=== PATIENT | male | born 1960 | race Caucasian/White ===

== ENCOUNTER 2016-10-14 09:23 | Inpatient (IN) | payer OTHER ==
[2016-10-14 10:15] VITALS: BMI 22.2
--- NOTE | 2016-10-14 12:13 | HP ---
CIWA Score - CIWA Score Nausea/Vomitin Muscle Tremors: 3 Anxiety: 3 Agitation: 3 Paroxysmal Sweats: 2 Orientation: 0-Oriented Tacttile Disturbances: 2-Mild Itch/Numbness/Burn Auditory Disturbances: 2-Mild Harshness/Frighten Visual Disturbances: 2-Mild Sensitivity Headache: 2-Mild CIWA-Ar Total Score: 22 Admission ROS BHS - HPI Chief Complaint: I AM HERE NEED HELP TO STOP ALCOHOL Allergies/Adverse Reactions: Allergies Allergy/AdvReac Type Severity Reaction Status Date / Time No Known Allergies Allergy Verified 10/14/16 10:57 History of Present Illness: THIS 56 YEARS OLD WITH ALCOHOL DEPENDENCE,WITHDRAWAL SYMPTOM,LAST DETOX 2014 [place] HTN SEIZURE LAST 02/26/14 DEPRESSION FRACTURE LEFT RIBS,FX LEFT ULNA AND ,LEFT HAND 6 DAYS AGO LONGEST PERIOD SOBRIETY 3O DAYS Exam Limitations: No Limitations - Ebola screening Have you traveled outside of the country in the last 21 days: No Have you had contact with anyone from an Ebola affected area: No Have you been sick,other than usual withdrawal symptoms: No - Review of Systems Constitutional: Loss of Appetite, Malaise, Night Sweats, Changes in sleep EENT: reports: Tearing, Nose Congestion Respiratory: reports: No Symptoms reported, Other (ASTHMA) Cardiac: reports: Palpitations GI: reports: Nausea, Poor Appetite, Vomiting, Abdominal cramping : reports: No Symptoms Reported Musculoskeletal: reports: Muscle Pain Integumentary: reports: Dryness Neuro: reports: Headache, Tremors Endocrine: reports: No Symptoms Reported Hematology: reports: No Symptoms Reported Psychiatric: reports: Depressed Patient History - Patient Medical History Hx Anemia: No Hx Asthma: Yes (ON ALBUTEROL INHALER AND SYMBICORT) Hx Chronic Obstructive Pulmonary Disease (COPD): No Hx Cancer: No Hx Cardiac Disorders: No Hx Congestive Heart Failure: No Hx Hypertension: Yes (ON MED) Hx Seizures: Yes (alcohol relatd-last episode was in 02/2014) Hx Diabetes: No Hx Gastrointestinal Disorders: No Hx Liver Disease: No Hx Genitourinary Disorders: No Hx Sexually Transmitted Disorders: No Hx Renal Disease (ESRD): No Hx Thyroid Disease: No Hx Human Immunodeficiency Virus (HIV): No (LAST 2016 NEGATIVE) Hx Hepatitis C: No Hx Depression: Yes (ON MED) Hx Suicide Attempt: No Hx Bipolar Disorder: No Hx Schizophrenia: No Other Medical History: NOS UICIDAL,NO HOMICIDAL - Patient Surgical History Past Surgical History: Yes Hx Neurologic Surgery: No Hx Cataract Extraction: No Hx Cardiac Surgery: No Hx Lung Surgery: No Hx Breast Surgery: No Hx Breast Biopsy: No Hx Abdominal Surgery: No Hx Appendectomy: No Hx Cholecystectomy: No Hx Genitourinary Surgery: No Hx Section: No Hx Orthopedic Surgery: Yes (LEFT upper arm HUMERUS 2011) Other Surgical History: tonsilectomy AT AGE 1 MONTHS? - PPD History Previous Implant?: Yes Documented Results: Negative w/o proof Implanted On Prior R Admission?: No PPD to be Administered?: Yes - Smoking Cessation Smoking history: Current every day smoker Have you smoked in the past 12 months: Yes Aproximately how many cigarettes per day: 15 Hx Chewing Tobacco Use: No Initiated information on smoking cessation: Yes 'Breaking Loose' booklet given: 10/14/16 - Substance & Tx. History Hx Alcohol Use: Yes Hx Substance Use: No Substance Use Type: Alcohol Hx Substance Use Treatment: Yes (2014 [place]) - Substances Abused Alcohol-vodka Route: Oral Frequency: Daily Amount used: 1 pt. Age of first use: 14 Date of Last Use: 10/12/16 Family Disease History - Family Disease History Family History: Denies Admission Physical Exam S - Vital Signs Vital Signs: Vital Signs - 24 hr 10/14/16 10:12 Temperature 98.7 F Pulse Rate 103 H Respiratory 20 Rate Blood Pressure 121/91 - Physical General Appearance: Yes: Moderate Distress, Tremorous, Irritable, Sweating, Anxious HEENTM: Yes: Normal ENT Inspection, AMANDA, Pharynx Normal Respiratory: Yes: Lungs Clear, Normal Breath Sounds, No Respiratory Distress Neck: Yes: Within Normal Limits Breast: Yes: Within Normal Limits Cardiology: Yes: Within Normal Limits, Regular Rhythm, Regular Rate, S1, S2 Abdominal: Yes: Normal Bowel Sounds, Non Tender, Flat, Soft, Organomegaly Genitourinary: Yes: Within Normal Limits Back: Yes: Muscle Spasm Musculoskeletal: Yes: Back pain, Muscle Pain Extremities: Yes: Normal Range of Motion, Tremors, Other 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, Fully Oriented, Alert, Motor Strength 5/5 Integumentary: Yes: Dry Lymphatic: Yes: Within Normal Limits - Addiitonal Findings: SHORT ARM CAST LEFT - Diagnostic (1) Alcohol dependence with uncomplicated withdrawal Current Visit: Yes Status: Acute (2) Essential hypertension Current Visit: Yes Status: Acute (3) Seizure Current Visit: Yes Status: Acute (4) Depression Current Visit: Yes Status: Acute (5) Asthma Current Visit: Yes Status: Acute (6) Fracture of rib of left side Current Visit: Yes Status: Acute (7) Fracture of left ulna Current Visit: Yes Status: Acute (8) Fracture of left hand Current Visit: Yes Status: Acute Cleared for Admission [facility] - Detox or Rehab [facility] Level of Care: Medically Managed Detox Regimen/Protocol: Librium [facility] Breath Alcohol Content Breath Alcohol Content: 0.113 Urine Drug Screen - Results Drug Screen Negative: No Urine Drug Screen Results: OPI-Opiates, MET-Methamphetamine, BZO-Benzodiazepines
[2016-10-14] MEDS ORDERED: P-EPHED 60MG/TRIPROLIDI 2.5MG TABLET PO PRN (12:48)
[2016-10-14] MEDS ORDERED: hydrOXYzine PAMOATE 50 MG CAPSULE (FP) PO PRN (12:48)
[2016-10-14] MEDS ORDERED: MAGNESIUM CITRATE 300 ML BOTTLE PO PRN (12:48)
[2016-10-14] MEDS ORDERED: NICOTINE POLACRILEX 2 MG GUM BUC PRN (12:48)
[2016-10-14] MEDS ORDERED: guaiFENesin/D-METHORPHAN HB 10 ML UNIT-DOSE CUPS PO PRN (12:48)
[2016-10-14] MEDS ORDERED: MAGNESIUM HYDROX 2400MG/30ML ORAL SUSPENSION 30 ML CUP PO PRN (12:48)
[2016-10-14] MEDS ORDERED: MENTHOL/PHENOL 1 EACH UD MM PRN (12:48)
[2016-10-14] MEDS ORDERED: MAG HYDROX/AL HYDROX/SIMETH 30 ML UNIT-DOSE CUP PO PRN (12:48)
[2016-10-14] MEDS ORDERED: LOPERAMIDE HCL 2 MG CAPSULE PO PRN (12:48)
[2016-10-14] MEDS ORDERED: PATIENT'S OWN MEDICATION (NON-FORMULARY) (Naproxen Sodium [Aleve] 220 MG) PO PRN (12:52)
[2016-10-14] MEDS ORDERED: chlordiazePOXIDE HCL 25 MG CAPSULE PO ONE (12:55)
[2016-10-14] MEDS: NICOTINE 21 MG/24 HOURS TOPICAL PATCH TD SCH (14:00)
[2016-10-14] MEDS ORDERED: ALBUTEROL SO4 6.7 GM HFA INHALER IH PRN (14:12)
[2016-10-14] MEDS: ACETAMINOPHEN 325 MG TABLET (FP) PO PRN ×2 (15:29→19:48)
--- NOTE | 2016-10-14 15:56 | CONSULT ---
[facility] Psychiatric Consult - Data Date of interview: 10/14/16 Admission source: [facility] Identifying data: First admission to [facility] for this 56 y/o male seeking detox treatment for alcohol dependence.Patient is ,a father of two,domiciled (lives with his parents),currently unemployed and supported on [facility] benefits. Substance Abuse History: - Smoking Cessation. Smoking history: Current every day smoker. Have you smoked in the past 12 months: Yes. Aproximately how many cigarettes per day: 15. Hx Chewing Tobacco Use: No. Initiated information on smoking cessation: Yes. 'Breaking Loose' booklet given: 10/14/16. - Substance & Tx. History. Hx Alcohol Use: Yes. Hx Substance Use: No. Substance Use Type : Alcohol. Hx Substance Use Treatment: Yes (2014 [place]). - Substances Abused. Alcohol-vodka. Route: Oral. Frequency: Daily. Amount used: 1 pt. Age of first use: 14. Date of Last Use: 10/12/16. Confirmed by patient. Medical History: Bronchial asthma,hypetension,seizure disorder (on valproate) and fracture of ribs,left ulna (cast in place) due to an accidental fall at home last week. Psychiatric History: No reported history of psychiatric hospitalizations.Diagnosed with MDD.Prescribed effexor 37.5 mg/day.No regular OPD care.Mr Fitzgerald reports that he depends on his primary care doctor for scripts.Last took the medication a week ago.Patient denies history of suicide attempts. Physical/Sexual Abuse/Trauma History: Patient denies. Additional Comment: Urine Drug Screen Results: OPI-Opiates, MET-Methamphetamine , BZO-Benzodiazepines.Noted. Mental Status Exam - Mental Status Exam Alert and Oriented to: Time, Place Cognitive Function: Good Patient Appearance: Well Groomed (left forearm/hand in a cast) Mood: Withdrawn, Anxious, Apprehensive, Hopeful Affect: Mood Congruent Patient Behavior: Fatigued, Appropriate, Cooperative Speech Pattern: Clear, Appropriate Voice Loudness: Normal Thought Process: Goal Oriented Thought Disorder: Not Present Hallucinations: Denies Suicidal Ideation: Denies Homicidal Ideation: Denies Insight/Judgement: Poor Sleep: Fair Appetite: Good Muscle strength/Tone: Normal Gait/Station: Normal Psychiatric Findings - Problem List ([place] 1, 2,3) (1) Alcohol dependence with uncomplicated withdrawal Current Visit: Yes Status: Acute (2) Nicotine dependence Current Visit: Yes Status: Acute (3) Alcohol-induced mood disorder Current Visit: Yes Status: Acute (4) Mood disorder Current Visit: Yes Status: Chronic (5) Asthma Current Visit: Yes Status: Chronic (6) Essential hypertension Current Visit: Yes Status: Chronic (7) Fracture of left hand Current Visit: Yes Status: Acute (8) Fracture of left ulna Current Visit: Yes Status: Acute (9) Fracture of rib of left side Current Visit: Yes Status: Acute (10) Seizure Current Visit: Yes Status: Chronic - Initial Treatment Plan Initial Treatment Plan: Psychoeducation.Detoxification in progress.Medication : effexor 37.5 mg po daily (confirmed by pharmacy claims of 10/06/16 @ [id number]) .Side effects/benefits discussed with patient.Made aware of risk of hypertension.Patient consents (verbally) to continue treatment with effexor.Observation.No script needed at discharge (already available supply of effexor).
[2016-10-14 17:06] LABS: URINE APPEARANCE TURBID; URINE BLOOD NEGATIVE (NEGATIVE); URINE COLOR YELLOW; URINE GLUCOSE (UA) NEGATIVE (NEGATIVE); URINE KETONE TRACE (NEGATIVE); URINE LEUK ESTERASE NEGATIVE (NEGATIVE); URINE NITRITE NEGATIVE (NEGATIVE); URINE UROBILINOGEN 4.0 E.U/dl E.U./dl (0.2-1.0)
[2016-10-14 17:07] LABS: URINE PROTEIN 2+ (NEGATIVE)
[2016-10-14 17:19] LABS: URINE MUCUS MANY; URINE RBC 3 /hpf (0-3)
[2016-10-14] MEDS: chlordiazePOXIDE HCL 25 MG CAPSULE PO SCH ×2 (17:55→22:28)
[2016-10-14] MEDS: IBUPROFEN 400 MG TABLET (FP) PO PRN (18:35)
[2016-10-14] MEDS: chlordiazePOXIDE HCL 25 MG CAPSULE PO PRN (19:48)
[2016-10-14] MEDS: DIVALPROEX SODIUM 250 MG TABLET E.C. (FP) PO SCH (22:28)
[2016-10-14] MEDS: THIAMINE HCL 100 MG TABLET (FP) PO SCH (22:28)
[2016-10-14] MEDS: BUDESONIDE/FORMETEROL FUMARATE 80/4.5 mcg INHALER IH SCH (22:55)
[2016-10-14] MEDS: NAPROXEN 250 MG TABLET (FP) PO SCH (23:36)
[2016-10-15] MEDS: IBUPROFEN 400 MG TABLET (FP) PO PRN (00:54)
[2016-10-15] MEDS: chlordiazePOXIDE HCL 25 MG CAPSULE PO PRN (00:54)
[2016-10-15] MEDS: diphenhydrAMINE HCL 50 MG CAPSULE PO PRN (00:54)
[2016-10-15] MEDS: chlordiazePOXIDE HCL 25 MG CAPSULE PO SCH (05:46)
[2016-10-15] MEDS: ACETAMINOPHEN 325 MG TABLET (FP) PO PRN (05:56)
[2016-10-15] MEDS: DIVALPROEX SODIUM 250 MG TABLET E.C. (FP) PO SCH ×2 (07:58→22:29)
[2016-10-15] MEDS ORDERED: diazePAM 5 MG TABLET PO ONE (08:44)
--- NOTE | 2016-10-15 08:52 | PN ---
S CIWA - CIWA Score Nausea/Vomitin Muscle Tremors: 3 Anxiety: 3 Agitation: 2 Paroxysmal Sweats: 1-Minimal Palms Moist Orientation: 0-Oriented Tacttile Disturbances: 1-Very Mild Itch/Numbness Auditory Disturbances: 1-Very Mild Visual Disturbances: 1-Very Mild Sensitivity Headache: 2-Mild CIWA-Ar Total Score: 17 BHS Progress Note (SOAP) Subjective: ALERT,IRRITABLE,ANXIOUS,INTERRUPTED SLEEP,TREMOR,PAIN IN THE LEFT RIBS Objective: 10/15/16 08:49 Vital Signs Temperature 97.6 F 10/15/16 06:45 Pulse Rate 71 10/15/16 06:45 Respiratory Rate 18 10/15/16 06:45 Blood Pressure 155/89 10/15/16 06:45 O2 Sat by Pulse Oximetry (%) EKG SINUS TACHYCARDIA RATE 107 Laboratory Last Values Urine Color Yellow 10/14/16 13:00 Urine Appearance Turbid 10/14/16 13:00 Urine pH 5.0 (5.0-8.0) 10/14/16 13:00 Ur Specific [place] 1.038 (1.001-1.035) H 10/14/16 13:00 Urine Protein 2+ (NEGATIVE) H 10/14/16 13:00 Urine Glucose (UA) Negative (NEGATIVE) 10/14/16 13:00 Urine Ketones Trace (NEGATIVE) H 10/14/16 13:00 Urine Blood Negative (NEGATIVE) 10/14/16 13:00 Urine Nitrite Negative (NEGATIVE) 10/14/16 13:00 Urine Bilirubin 4.0 (NEGATIVE) 10/14/16 13:00 Urine Urobilinogen 4.0 e.u/dl E.U./dl (0.2-1.0) 10/14/16 13:00 Ur Leukocyte Esterase Negative (NEGATIVE) 10/14/16 13:00 Urine RBC 3 /hpf (0-3) 10/14/16 13:00 Urine WBC None /hpf (3-5) 10/14/16 13:00 Amorphous Urates Many /hpf (NONE SEEN) 10/14/16 13:00 Urine Mucus Many 10/14/16 13:00 LABS PENDING Assessment: 10/15/16 08:50 WITHDRAWAL SYMPTOM Plan: CONTINUE DETOX,PATIENT WOULD LIKE REGIMEN TO BE CHANGED TO VALIUM INSTEAD OF LIBRIUM
[2016-10-15] MEDS: BUDESONIDE/FORMETEROL FUMARATE 80/4.5 mcg INHALER IH SCH ×2 (10:31→22:32)
[2016-10-15] MEDS: PRENATAL VITAMINS W/ FOLIC ACID TABLET (FP) PO SCH (10:31)
[2016-10-15] MEDS: NAPROXEN 250 MG TABLET (FP) PO SCH ×2 (10:31→22:31)
[2016-10-15] MEDS: NICOTINE 21 MG/24 HOURS TOPICAL PATCH TD SCH (10:32)
[2016-10-15] MEDS: METOPROLOL SUCCINATE 100 MG TAB.SR.24H (FP) PO SCH (10:33)
[2016-10-15] MEDS: VENLAFAXINE HCL 37.5 MG TABLET PO SCH (10:34)
[2016-10-15 10:52] LABS: MCH 34.2 pg (25.7-33.7); MCHC 34.4 g/dl (32.0-35.9); MEAN CELL VOLUME 99.6 fl (80-96); MEAN PLT VOLUME 7.7 fl (7.5-11.1); PLATELET COUNT 160 K/MM3 (134-434); RDW 14.1 % (11.9-15.9)
[2016-10-15 10:56] LABS: ALBUMIN 3.4 g/dl (3.4-5.0); ANION GAP 6 (8-16); CALCIUM 8.4 mg/dL (8.5-10.1); CO2 32 mmol/L (21-32); GLUCOSE,RANDOM 84 mg/dL (74-106)
[2016-10-15 11:00] LABS: ALK PHOS 65 U/L (45-117); BILIRUBIN,TOTAL 0.5 mg/dL (0.2-1.0); COCKROFT - GAULT 114.38; CREATININE 0.7 mg/dL (0.7-1.3); SGOT/AST 16 U/L (15-37); SGPT/ALT 16 U/L (12-78); TOT PROT 6.5 g/dl (6.4-8.2)
[2016-10-15] MEDS ORDERED: cloNIDine HCL 0.1 MG TABLET PO ONE (12:14)
--- NOTE | 2016-10-15 12:33 | EKG ---
Test Reason : Blood Pressure : / mmHG Vent. Rate : 107 BPM Atrial Rate : 107 BPM P-R Int : 152 ms QRS Dur : 084 ms QT Int : 354 ms P-R-T Axes : 063 -02 075 degrees QTc Int : 472 ms SINUS TACHYCARDIA OTHERWISE NORMAL ECG NO PREVIOUS ECGS AVAILABLE Confirmed by STAR ROQUE MD ([id number]) on 10/15/2016 12:33:17 PM Referred By: Moe Downey Confirmed By:STAR ROQUE MD
[2016-10-15] MEDS: diazePAM 5 MG TABLET PO SCH ×2 (14:11→22:29)
[2016-10-15] MEDS ORDERED: chlordiazePOXIDE HCL 25 MG CAPSULE PO SCH (17:00)
[2016-10-15] MEDS: diazePAM 5 MG TABLET PO PRN (17:07)
[2016-10-15] MEDS: THIAMINE HCL 100 MG TABLET (FP) PO SCH (22:29)
[2016-10-16] MEDS: ACETAMINOPHEN 325 MG TABLET (FP) PO PRN ×2 (04:34→19:46)
[2016-10-16] MEDS: diazePAM 5 MG TABLET PO SCH ×3 (05:21→22:33)
[2016-10-16] MEDS: DIVALPROEX SODIUM 250 MG TABLET E.C. (FP) PO SCH ×2 (07:05→22:33)
--- NOTE | 2016-10-16 09:55 | PN ---
[facility] CIWA - CIWA Score Nausea/Vomitin Muscle Tremors: 3 Anxiety: 3 Agitation: 2 Paroxysmal Sweats: 1-Minimal Palms Moist Orientation: 0-Oriented Tacttile Disturbances: 1-Very Mild Itch/Numbness Auditory Disturbances: 1-Very Mild Visual Disturbances: 1-Very Mild Sensitivity Headache: 2-Mild CIWA-Ar Total Score: 17 S Progress Note (SOAP) Subjective: ALERT,IRRITABLE,ANXIOUS,INTERRUPTED SLEEP,TREMOR,PAIN IN LEFT RIBS Objective: 10/16/16 09:54 Vital Signs Temperature 96.0 F L 10/16/16 06:07 Pulse Rate 72 10/16/16 06:07 Respiratory Rate 18 10/16/16 06:07 Blood Pressure 144/95 10/16/16 06:07 O2 Sat by Pulse Oximetry (%) Laboratory Last Values WBC 7.0 K/mm3 (4.0-10.0) 10/15/16 06:00 RBC 3.93 M/mm3 (4.00-5.60) L 10/15/16 06:00 Hgb 13.4 GM/dL (11.7-16.9) 10/15/16 06:00 Hct 39.1 % (35.4-49) 10/15/16 06:00 MCV 99.6 fl (80-96) H 10/15/16 06:00 MCHC 34.4 g/dl (32.0-35.9) 10/15/16 06:00 RDW 14.1 % (11.9-15.9) 10/15/16 06:00 Plt Count 160 K/MM3 (134-434) 10/15/16 06:00 MPV 7.7 fl (7.5-11.1) 10/15/16 06:00 Sodium 145 mmol/L (136-145) 10/15/16 06:00 Potassium 3.7 mmol/L (3.5-5.1) 10/15/16 06:00 Chloride 107 mmol/L (98-107) 10/15/16 06:00 Carbon Dioxide 32 mmol/L (21-32) 10/15/16 06:00 Anion Gap 6 (8-16) L 10/15/16 06:00 BUN 14 mg/dL (7-18) 10/15/16 06:00 Creatinine 0.7 mg/dL (0.7-1.3) 10/15/16 06:00 Creat Clearance w eGFR > 60 (>60) 10/15/16 06:00 Random Glucose 84 mg/dL (74-106) 10/15/16 06:00 Calcium 8.4 mg/dL (8.5-10.1) L 10/15/16 06:00 Total Bilirubin 0.5 mg/dL (0.2-1.0) 10/15/16 06:00 AST 16 U/L (15-37) 10/15/16 06:00 ALT 16 U/L (12-78) 10/15/16 06:00 Alkaline Phosphatase 65 U/L (45-117) 10/15/16 06:00 Total Protein 6.5 g/dl (6.4-8.2) 10/15/16 06:00 Albumin 3.4 g/dl (3.4-5.0) 10/15/16 06:00 Urine Color Yellow 10/14/16 13:00 Urine Appearance Turbid 10/14/16 13:00 Urine pH 5.0 (5.0-8.0) 10/14/16 13:00 Ur Specific [place] 1.038 (1.001-1.035) H 10/14/16 13:00 Urine Protein 2+ (NEGATIVE) H 10/14/16 13:00 Urine Glucose (UA) Negative (NEGATIVE) 10/14/16 13:00 Urine Ketones Trace (NEGATIVE) H 10/14/16 13:00 Urine Blood Negative (NEGATIVE) 10/14/16 13:00 Urine Nitrite Negative (NEGATIVE) 10/14/16 13:00 Urine Bilirubin 4.0 (NEGATIVE) 10/14/16 13:00 Urine Urobilinogen 4.0 e.u/dl E.U./dl (0.2-1.0) 10/14/16 13:00 Ur Leukocyte Esterase Negative (NEGATIVE) 10/14/16 13:00 Urine RBC 3 /hpf (0-3) 10/14/16 13:00 Urine WBC None /hpf (3-5) 10/14/16 13:00 Amorphous Urates Many /hpf (NONE SEEN) 10/14/16 13:00 Urine Mucus Many 10/14/16 13:00 RPR Titer Nonreactive (NONREACTIVE) 10/15/16 06:00 Assessment: 10/16/16 09:55 WITHDRAWAL SYMPTOM Plan: CONTINUE DETOX
[2016-10-16] MEDS: PRENATAL VITAMINS W/ FOLIC ACID TABLET (FP) PO SCH (10:49)
[2016-10-16] MEDS: METOPROLOL SUCCINATE 100 MG TAB.SR.24H (FP) PO SCH (10:49)
[2016-10-16] MEDS: VENLAFAXINE HCL 37.5 MG TABLET PO SCH (10:50)
[2016-10-16] MEDS: BUDESONIDE/FORMETEROL FUMARATE 80/4.5 mcg INHALER IH SCH ×2 (10:50→22:34)
[2016-10-16] MEDS: NICOTINE 21 MG/24 HOURS TOPICAL PATCH TD SCH (10:51)
[2016-10-16] MEDS: NAPROXEN 500 MG TABLET (FP) PO SCH ×2 (10:51→22:33)
[2016-10-16] MEDS ORDERED: chlordiazePOXIDE 5 MG CAPSULE PO SCH (17:00)
[2016-10-16] MEDS: diazePAM 5 MG TABLET PO PRN (17:08)
[2016-10-16] MEDS: THIAMINE HCL 100 MG TABLET (FP) PO SCH (22:34)
[2016-10-16] MEDS: diphenhydrAMINE HCL 50 MG CAPSULE PO PRN (22:35)
[2016-10-17] MEDS: ACETAMINOPHEN 325 MG TABLET (FP) PO PRN (03:24)
--- NOTE | 2016-10-17 04:13 | PN ---
[facility] Progress Note Note: PATIENT COMPLAINT OF SEVERE PAIN IN THE LEFT FOREARM AND LEFT THUMB,NUMBNESS OF LEFT RING AND 5TH FINGER ,PAIN IN HE LEFT FOREARM, NAIL COLOR PINKISH MOVEMENTOF FINGERS WITH PAIN LEFT THUMB WITH ECCHYMOSIS SHORT ARM CAST LEFT IMPRESSION FX OF LEFT FOREARM LEFT HAND HISTORY S/P SHORT ARM CAST LEFT FOREARM ALCOHOL DEPENDENCE HYPERTENSION R/O COMPARTMENT SYNDROME TREATMENT TO ER EVALUATION AT [facility] SPOKE WITH DR AGUILAR TO BE TRASPORTED BY [facility]
[2016-10-17] MEDS ORDERED: diazePAM 5 MG TABLET PO SCH (10:00)
[2016-10-17 10:24] VITALS: BP 121/89; PULSE 76; TEMP 97.3
[2016-10-17] MEDS: BUDESONIDE/FORMETEROL FUMARATE 80/4.5 mcg INHALER IH SCH (11:17)
[2016-10-17] MEDS: VENLAFAXINE HCL 37.5 MG TABLET PO SCH (11:18)
[2016-10-17] MEDS: METOPROLOL SUCCINATE 100 MG TAB.SR.24H (FP) PO SCH (11:18)
[2016-10-17] MEDS: PRENATAL VITAMINS W/ FOLIC ACID TABLET (FP) PO SCH (11:18)
[2016-10-17] MEDS: NAPROXEN 500 MG TABLET (FP) PO SCH (11:20)
[2016-10-17] MEDS: NICOTINE 21 MG/24 HOURS TOPICAL PATCH TD SCH (11:21)
[2016-10-17] MEDS ORDERED: DIVALPROEX SODIUM 250 MG TABLET E.C. (FP) PO ONE (11:31)
--- NOTE | 2016-10-17 14:17 | DS ---
[facility] Detox Discharge Summary Admission Date: 10/14/16 Discharge Date: 10/17/16 - History Present History: Alcohol Dependence Additional Comments: ADVISED PATIENT TO FOLLOW-UP WITH [facility] FOR GENERAL MEDICAL ASSESSMENT. Pertinent Past History: Depression, Asthma, HTN, Seizures. - Physical Exam Results Vital Signs: Vital Signs Temperature 97.3 F L 10/17/16 10:23 Pulse Rate 76 10/17/16 10:23 Respiratory Rate 18 10/17/16 10:23 Blood Pressure 121/89 10/17/16 10:23 O2 Sat by Pulse Oximetry (%) Pertinent Admission Physical Exam Findings: WITHDRAWAL SYMPTOMS. Laboratory Last Values WBC 7.0 K/mm3 (4.0-10.0) 10/15/16 06:00 RBC 3.93 M/mm3 (4.00-5.60) L 10/15/16 06:00 Hgb 13.4 GM/dL (11.7-16.9) 10/15/16 06:00 Hct 39.1 % (35.4-49) 10/15/16 06:00 MCV 99.6 fl (80-96) H 10/15/16 06:00 MCHC 34.4 g/dl (32.0-35.9) 10/15/16 06:00 RDW 14.1 % (11.9-15.9) 10/15/16 06:00 Plt Count 160 K/MM3 (134-434) 10/15/16 06:00 MPV 7.7 fl (7.5-11.1) 10/15/16 06:00 Sodium 145 mmol/L (136-145) 10/15/16 06:00 Potassium 3.7 mmol/L (3.5-5.1) 10/15/16 06:00 Chloride 107 mmol/L (98-107) 10/15/16 06:00 Carbon Dioxide 32 mmol/L (21-32) 10/15/16 06:00 Anion Gap 6 (8-16) L 10/15/16 06:00 BUN 14 mg/dL (7-18) 10/15/16 06:00 Creatinine 0.7 mg/dL (0.7-1.3) 10/15/16 06:00 Creat Clearance w eGFR > 60 (>60) 10/15/16 06:00 Random Glucose 84 mg/dL (74-106) 10/15/16 06:00 Calcium 8.4 mg/dL (8.5-10.1) L 10/15/16 06:00 Total Bilirubin 0.5 mg/dL (0.2-1.0) 10/15/16 06:00 AST 16 U/L (15-37) 10/15/16 06:00 ALT 16 U/L (12-78) 10/15/16 06:00 Alkaline Phosphatase 65 U/L (45-117) 10/15/16 06:00 Total Protein 6.5 g/dl (6.4-8.2) 10/15/16 06:00 Albumin 3.4 g/dl (3.4-5.0) 10/15/16 06:00 Urine Color Yellow 10/14/16 13:00 Urine Appearance Turbid 10/14/16 13:00 Urine pH 5.0 (5.0-8.0) 10/14/16 13:00 Ur Specific [place] 1.038 (1.001-1.035) H 10/14/16 13:00 Urine Protein 2+ (NEGATIVE) H 10/14/16 13:00 Urine Glucose (UA) Negative (NEGATIVE) 10/14/16 13:00 Urine Ketones Trace (NEGATIVE) H 10/14/16 13:00 Urine Blood Negative (NEGATIVE) 10/14/16 13:00 Urine Nitrite Negative (NEGATIVE) 10/14/16 13:00 Urine Bilirubin 4.0 (NEGATIVE) 10/14/16 13:00 Urine Urobilinogen 4.0 e.u/dl E.U./dl (0.2-1.0) 10/14/16 13:00 Ur Leukocyte Esterase Negative (NEGATIVE) 10/14/16 13:00 Urine RBC 3 /hpf (0-3) 10/14/16 13:00 Urine WBC None /hpf (3-5) 10/14/16 13:00 Amorphous Urates Many /hpf (NONE SEEN) 10/14/16 13:00 Urine Mucus Many 10/14/16 13:00 RPR Titer Nonreactive (NONREACTIVE) 10/15/16 06:00 LABS NOTED. - Treatment Hospital Course: Detoxed Safely - Medication Discharge Medications: Ambulatory Orders Budesonide/Formeterol Fumarate [SYMBICORT 80/4.5mcg -] 1 inh IH BID 10/14/16 Divalproex Sodium [Depakote] 250 mg PO AM 10/14/16 Divalproex Sodium [Depakote] 750 mg PO HS 10/14/16 Metoprolol Succinate [Toprol Xl] 100 mg PO DAILY 10/14/16 Multivitamins [Multivit ([facility] Formulary)] 1 tab PO DAILY 10/14/16 Naproxen Sodium [Aleve] 220 mg PO BID PRN 10/14/16 Venlafaxine HCl ER [Effexor Xr -] 37.5 mg PO DAILY 10/14/16 Vitamin B Complex Vit C No.3 [Balanced B Complex-Vit C] 1 each PO DAILY Ibuprofen [Motrin -] 600 mg PO Q6H PRN #30 tablet 10/17/16 Oxycodone HCl/Acetaminophen [Percocet 5-325 mg Tablet] 1 tab PO Q6H PRN #24 tablet MDD 4 tablet 10/17/16 - Diagnosis (1) Alcohol dependence with uncomplicated withdrawal Status: Acute (2) Depression Status: Chronic Qualifiers: Depression Type: unspecified Qualified Code(s): F32.9 - Major depressive disorder, single episode, unspecified (3) Fracture of left hand Status: Acute Qualifiers: Encounter type: sequela Qualified Code(s): S62.92XS - Unspecified fracture of left wrist and hand, sequela (4) Fracture of left ulna Status: Acute Qualifiers: Encounter type: sequela Fracture type: closed Fracture morphology: unspecified fracture morphology (5) Fracture of rib of left side Status: Acute Qualifiers: Encounter type: sequela Fracture type: closed (6) Nicotine dependence Status: Chronic Qualifiers: Nicotine product type: cigarettes Substance use status: uncomplicated Qualified Code(s): F17.210 - Nicotine dependence, cigarettes, uncomplicated (7) Asthma Status: Chronic Qualifiers: Asthma severity: mild persistent Asthma complication type: uncomplicated Qualified Code(s): J45.30 - Mild persistent asthma, uncomplicated (8) Essential hypertension Status: Chronic (9) Seizure Status: Chronic - AMA Did Patient Leave Against Medical Advice: Yes (PATIENT DID NOT WANT TO STAY TO COMPLETE DETOX REGIMEN.)
[2016-10-17] MEDS ORDERED: chlordiazePOXIDE HCL 10 MG CAPSULE PO SCH (17:00)
[2016-10-19] MEDS ORDERED: diazePAM 5 MG TABLET PO SCH (10:00)
== END 2016-10-17 11:10 | disposition left against medical advice (07) | DRG 894 ==
LOC: YASAS 09:23 → Y6N 12:03
PROVIDERS: ADMIT Internal Medicine Addiction Medicine; ATTEND Internal Medicine Addiction Medicine
PROC: HZ2ZZZZ Detoxification Services for Substance Abuse Treatment (ICD-10-PCS; principal; 2016-10-17)
DX: F10.230 Alcohol dependence with withdrawal, uncomplicated (principal); F17.210 Nicotine dependence, cigarettes, uncomplicated; F19.24 Other psychoactive substance dependence with psychoactive substance-induced mood disorder; F32.9 Major depressive disorder, single episode, unspecified; I10 Essential (primary) hypertension; G40.909 Epilepsy, unspecified, not intractable, without status epilepticus; J45.30 Mild persistent asthma, uncomplicated; Z87.81 Personal history of (healed) traumatic fracture
CPT/HCPCS: 36415; 80053; 81003; 81015; 85027; 86593; 93005; 93010

== ENCOUNTER 2016-10-17 04:53 | Emergency (ER) | payer OTHER ==
[2016-10-17 05:04] VITALS: BP 124/80; PULSE 64; TEMP 97.8; BMI 22.2
[2016-10-17] MEDS ORDERED: OXYCODONE/APAP 5/325MG COMBO TABLET PO ONE (06:01)
[2016-10-17] MEDS ORDERED: IBUPROFEN 400 MG TABLET (FP) PO ONE ×2 (06:01→06:27)
[2016-10-17] MEDS ORDERED: OXYCODONE/APAP 5/325MG COMBO TABLET ONE (06:26)
--- NOTE | 2016-10-17 06:38 | PDOC ---
"History of Present Illness - General Chief Complaint: Pain, Acute Stated Complaint: LT ARM PAIN Time Seen by Provider: 10/17/16 05:18 History Source: Patient Exam Limitations: No Limitations - History of Present Illness Initial Comments: 10/17/16 06:34 56yo Male patient presents to ED c/o left arm pain. Patient reports he fractured his ulna and multiple left ribs when he fell down a flight of stairs several weeks ago. Patient reports he has been taking Tylenol and Motrin with no relief. He states a few days ago began having pain to left arm with cast applied. Denies sensation of pin and needles, numbness, inability to move fingers or any other complaints at this time. Occurred: reports: other (On going) Upper Extremity Pain Location: left: wrist (With Orthopedic Cast applied) Method of Injury: reports: fell Modifying Factors: improves with: cold therapy, pain medication Extremity Pain Location - Extremity Pain Location Extremity Pain Locations: left: other Past History - Travel Traveled outside of the country in the last 30 days: No Close contact w/someone who was outside of country & ill: No - Past Medical History Allergies/Adverse Reactions: Allergies Allergy/AdvReac Type Severity Reaction Status Date / Time No Known Allergies Allergy Verified 10/14/16 10:57 Home Medications: Ambulatory Orders Budesonide/Formeterol Fumarate [SYMBICORT 80/4.5mcg -] 1 inh IH BID 10/14/16 Divalproex Sodium [Depakote] 250 mg PO AM 10/14/16 Divalproex Sodium [Depakote] 750 mg PO HS 10/14/16 Metoprolol Succinate [Toprol Xl] 100 mg PO DAILY 10/14/16 Multivitamins [Multivit ([facility] Formulary)] 1 tab PO DAILY 10/14/16 Naproxen Sodium [Aleve] 220 mg PO BID PRN 10/14/16 Venlafaxine HCl ER [Effexor Xr -] 37.5 mg PO DAILY 10/14/16 Vitamin B Complex Vit C No.3 [Balanced B Complex-Vit C] 1 each PO DAILY Ibuprofen [Motrin -] 600 mg PO Q6H PRN #30 tablet 10/17/16 Oxycodone HCl/Acetaminophen [Percocet 5-325 mg Tablet] 1 tab PO Q6H PRN #24 tablet MDD 4 tablet 10/17/16 Anemia: No Asthma: Yes (ON ALBUTEROL INHALER AND SYMBICORT) Cancer: No Cardiac Disorders: No COPD: No CHF: No Diabetes: No GI Disorders: No Disorders: No HTN: Yes (ON MED) Kidney Stones: No Liver Disease: No Suicide Attempt (Hx): No Seizures: Yes (alcohol relatd-last episode was in 02/2014) Thyroid Disease: No - Surgical History Abdominal Surgery: No Appendectomy: No Cardiac Surgery: No Cholecystectomy: No Lung Surgery: No Neurologic Surgery: No Orthopedic Surgery: Yes (LEFT upper arm HUMERUS 2011) - Reproductive History Testicular Surgery: No - Psycho/Social/Smoking Cessation Hx Anxiety: Yes Suicidal Ideation: No Smoking History: Current every day smoker Have you smoked in the past 12 months: Yes Number of Cigarettes Smoked Daily: 15 Information on smoking cessation initiated: No 'Breaking Loose' booklet given: 10/14/16 Hx Alcohol Use: Yes Drug/Substance Use Hx: No Substance Use Type: Alcohol Hx Substance Use Treatment: Yes (2014 [place]) Review of Systems - Review of Systems Able to Perform ROS?: Yes Is the patient limited Romanian proficient: No Musculoskeletal: Yes: Joint Pain All Other Systems: Reviewed and Negative *Physical Exam - Vital Signs Last Vital Signs Temp Pulse Resp BP Pulse Ox 97.8 F 64 16 124/80 98 10/17/16 05:03 10/17/16 05:03 10/17/16 05:03 10/17/16 05:03 10/17/16 05:03 - Physical Exam Comments: 10/17/16 06:39 logo Welcome Bryce Millan Update Personal Info | FAQ | Help | Search Results Help Coming soon, the [employer] Registry will be updated to enhance accessibility when using mobile devices. The appearance of the [employer] Registry will change as a result of the enhancements, but all of the current functionality will remain. Patient Search Multi-Patient Search Reports Drug Listing Designation My JOS[facility] Numbers Data Detail Level: Printer-Friendly View | Show Extended View Confidential Drug Utilization Report Search Terms: Bryn Fitzgerald, 1960 Search Date: 10/17/2016 06:39:18 AM The Drug Utilization Report below displays all of the controlled substance prescriptions, if any, that your patient has filled in the last twelve months. The information displayed on this report is compiled from pharmacy submissions to the Department, and accurately reflects the information as submitted by the pharmacies. This report was requested by: Bryce Millan | Reference #: [id number] There are no results for the search terms that you entered. General Appearance: Yes: Nourished, Appropriately Dressed, Mild Distress. No: Apparent Distress, Moderate Distress, Severe Distress Neck: positive: Trachea midline, Supple. negative: Decreased range of motion, Stridor, Lymphadenopathy (R) Respiratory/Chest: positive: Lungs Clear, Normal Breath Sounds. negative: Respiratory Distress, Accessory Muscle Use, Labored Respiration, Rapid RR Cardiovascular: positive: Regular Rhythm, Regular Rate Gastrointestinal/Abdominal: positive: Normal Bowel Sounds, Soft. negative: Distended, Guarding, Rebound, Tenderness Musculoskeletal: positive: Normal Inspection. negative: CVA Tenderness Extremity: positive: Normal Capillary Refill, Normal Inspection, Normal Range of Motion, Other (Lt wrist with cast. Cap Refill <3 sec, warm to touch, moves extremities.). negative: Swelling Integumentary: positive: Normal Color, Dry, Warm. negative: Jaundice, Cold, Clammy, Diaphoresis, Hives, Rash, Swelling, Ecchymosis Neurologic: positive: roving can tender II-XII NML intact, Fully Oriented, Alert, Normal Mood/ Affect, Normal Response. negative: Motor Strength 5/5 ED Treatment Course - Medications Given in the ED: ED Medications Discontinued Medications Generic Name Dose Route Start Last Admin Trade Name Freq PRN Reason Stop Dose Admin Ibuprofen 800 mg 10/17/16 06:01 10/17/16 06:28 Motrin - PO 10/17/16 06:02 800 mg ONCE ONE Administration Oxycodone/Acetaminophen 1 combo 10/17/16 06:01 10/17/16 06:28 Percocet 5/325 - PO 10/17/16 06:02 1 combo ONCE ONE Administration *DC/Admit/Observation/Transfer Diagnosis at time of Disposition: Left arm pain - Discharge Dispostion Disposition: HOME Condition at time of disposition: Improved Admit: No - Prescriptions Prescriptions: Ibuprofen [Motrin -] 600 mg PO Q6H PRN #30 tablet PRN Reason: Mild Pain Oxycodone HCl/Acetaminophen [Percocet 5-325 mg Tablet] 1 tab PO Q6H PRN #24 tablet MDD 4 tablet PRN Reason: Severe Pain - Referrals Referrals: Jairo Solano MD [Staff Physician] - - Patient Instructions Printed Discharge Instructions: DI for Wrist Fracture Additional Instructions: FOLLOW UP WITH DR. SOLANO (ORTHOPEDIC) TODAY DISCUSSED. CALL TO SCHEDULE APPOINTMENT. TAKE MEDICATIONS PRESCRIBED. RETURN IF SYMPTOMS WORSEN OR ANY CONCERN FOR FURTHER EVALUATION. DO NOT DRIVE, DRINK ALCOHOL, OR OPERATE HEAVY MACHINERY WHILE TAKING PERCOCET. Print Language: SUDANESE - Post Discharge Activity Work/School Note: Parent(s) Back to Work Note"
== END 2016-10-17 07:10 | disposition home or self-care (01) ==
LOC: JER 04:53
DX: M79.602 Pain in left arm (principal); Z09 Encounter for follow-up examination after completed treatment for conditions other than malignant neoplasm; Z87.81 Personal history of (healed) traumatic fracture
CPT/HCPCS: 99283-25